=== PATIENT | female | born 1990 | race Caucasian/White ===

== ENCOUNTER 2024-02-24 10:50 | Emergency (ER) | payer MEDICAID ==
[~2024-02-24] VITALS: Ht 170.2 cm; Wt 173.5 kg
[2024-02-24] MEDS ORDERED: NAPR-56 PO (11:57)
[2024-02-24] MEDS ORDERED: CYCL-394 PO (11:57)
[2024-02-24] MEDS ORDERED: LIDO700A32 TOP (11:57)
[2024-02-24] MEDS: ketorolac trometh 15mg/ml vial 15 MG/ML ML IM ONE (11:58)
[2024-02-24] MEDS: ketorolac trometh 30MG/ML vial 30 MG/ML VIAL IM ONE (12:08)
[2024-02-24] MEDS: cyclobenzaprine 10mg tablet PO ONE (12:25)
[2024-02-24 12:27] VITALS: BP 144/101; PULSE 80; RESP 16; TEMP 98.7; O2SAT 98
== END 2024-02-24 12:28 | disposition home or self-care (01) ==
LOC: ER 10:50
DX: M25.512 Pain in left shoulder (principal); M54.2 Cervicalgia; Z88.5 Allergy status to narcotic agent; Z79.899 Other long term (current) drug therapy; Z90.89 Acquired absence of other organs
CPT/HCPCS: 96372; 99283; J1885